=== PATIENT | male | born 1945 | race Caucasian/White ===

== ENCOUNTER 2020-05-25 15:12 | Emergency (ER) | payer OTHER ==
[2020-05-25 15:36] VITALS: BMI 21.6
[2020-05-25 17:19] LABS: HEMATOCRIT 42.6 % (35.4-49); HEMOGLOBIN 14.4 GM/dL (11.7-16.9); MCH 30.8 pg (25.7-33.7); MCHC 33.8 g/dl (32.0-35.9); MEAN CELL VOLUME 91.2 fl (80-96); MEAN PLT VOLUME 9.2 fl (7.5-11.1); PLATELET COUNT 138 K/MM3 (134-434); RBC 4.68 M/mm3 (4.00-5.60); RDW 14.1 % (11.9-15.9); WHITE BLOOD COUNT 4.9 K/mm3 (4.0-10.0)
[2020-05-25 17:36] LABS: POTASSIUM 4.5 mmol/L (3.5-5.1)
[2020-05-25 17:37] LABS: CALCIUM 8.3 mg/dL (8.5-10.1)
[2020-05-25 17:38] LABS: BLOOD UREA NITROGEN 13.9 mg/dL (7-18)
[2020-05-25 17:41] LABS: CREATININE 0.7 mg/dL (0.55-1.3)
[2020-05-25] MEDS: BAMLANIVIMAB 700 MG in SODIUM CHLORIDE 250 ML IVPB ONE ×2 (18:30→18:32)
[2020-05-25 21:38] VITALS: BP 132/85; PULSE 72; TEMP 98.1
== END 2020-05-25 20:05 | disposition home or self-care (01) ==
LOC: JER 15:12 → JCOVINFU 15:12
DX: U07.1 COVID-19 (principal)
CPT/HCPCS: 36415; 80048; 85027; 99284-25; M0239; Q0239

== ENCOUNTER 2020-07-03 11:57 | Inpatient (IN) | payer OTHER ==
[2020-07-03] MEDS ORDERED: ASPIRIN 81 MG CHEWABLE TABLETS PO ONE (12:19)
[2020-07-03] MEDS ORDERED: SODIUM CHLORIDE 1,000 ML IV SCH (12:30)
[2020-07-03] MEDS ORDERED: ASPIRIN 81 MG CHEWABLE TABLETS ONE (12:55)
[2020-07-03 13:22] LABS: BASO % 0.5 % (0-2.0); EOS % 14.4 % (0-4.5); HEMATOCRIT 40.3 % (35.4-49); HEMOGLOBIN 13.6 GM/dL (11.7-16.9); LYMPH % 18.2 % (8-40); MCH 31.2 pg (25.7-33.7); MCHC 33.9 g/dl (32.0-35.9); MEAN CELL VOLUME 92.1 fl (80-96); MEAN PLT VOLUME 8.7 fl (7.5-11.1); MONO % 5.7 % (3.8-10.2); NEUT % 61.2 % (42.8-82.8); PLATELET COUNT 198 K/MM3 (134-434); RBC 4.38 M/mm3 (4.00-5.60); RDW 14.6 % (11.9-15.9)
[2020-07-03 13:29] LABS: INR 0.97 (0.83-1.09)
[2020-07-03 13:31] LABS: ACTIVATED PTT 30.8 SECONDS (25.2-36.5)
[2020-07-03 13:41] LABS: CALCIUM 8.9 mg/dL (8.5-10.1)
[2020-07-03 13:42] LABS: ALBUMIN 3.8 g/dl (3.4-5.0); BLOOD UREA NITROGEN 15.8 mg/dL (7-18)
[2020-07-03 13:45] LABS: CREATININE 0.7 mg/dL (0.55-1.3)
[2020-07-03 13:46] LABS: BILIRUBIN,TOTAL 0.3 mg/dL (0.2-1); TOT PROT 7.7 g/dl (6.4-8.2)
[2020-07-03 17:39] LABS: URINE APPEARANCE CLEAR; URINE BILIRUBIN NEGATIVE (NEGATIVE); URINE COLOR YELLOW; URINE GLUCOSE (UA) NEGATIVE (NEGATIVE); URINE KETONE NEGATIVE (NEGATIVE); URINE LEUK ESTERASE NEGATIVE (NEGATIVE); URINE NITRITE NEGATIVE (NEGATIVE); URINE PROTEIN NEGATIVE (NEGATIVE); URINE UROBILINOGEN 0.2 mg/dL (0.2-1.0)
[2020-07-03 18:00] VITALS: BMI 22.9
[2020-07-03] MEDS: ATORVASTATIN CA 80 MG TABLET (FP) PO SCH (22:14)
[2020-07-04 07:17] LABS: BASO % 0.6 % (0-2.0); EOS % 22.6 % (0-4.5); HEMATOCRIT 39.7 % (35.4-49); HEMOGLOBIN 13.5 GM/dL (11.7-16.9); LYMPH % 16.7 % (8-40); MCHC 33.9 g/dl (32.0-35.9); MEAN CELL VOLUME 91.6 fl (80-96); MONO % 6.1 % (3.8-10.2); PLATELET COUNT 193 K/MM3 (134-434); RBC 4.34 M/mm3 (4.00-5.60); WHITE BLOOD COUNT 8.1 K/mm3 (4.0-10.0)
[2020-07-04 07:35] LABS: BLOOD UREA NITROGEN 14.9 mg/dL (7-18); CALCIUM 8.9 mg/dL (8.5-10.1)
[2020-07-04 07:36] LABS: ALBUMIN 3.5 g/dl (3.4-5.0)
[2020-07-04 07:39] LABS: CREATININE 0.7 mg/dL (0.55-1.3)
[2020-07-04 07:40] LABS: BILIRUBIN,TOTAL 0.6 mg/dL (0.2-1); TOT PROT 7.3 g/dl (6.4-8.2)
[2020-07-04] MEDS: ASPIRIN COATED 81 MG TABLET.EC PO SCH (09:36)
[2020-07-04] MEDS: amLODIPine BESYLATE 10 MG TABLET (FP) PO SCH (09:36)
[2020-07-04] MEDS ORDERED: amLODIPine BESYLATE 10 MG TABLET (FP) PO SCH (10:00)
[2020-07-04 10:35] LABS: ANISOCYTOSIS 0; MACROCYTOSIS 0; PLATELET ESTIMATE NORMAL
[2020-07-04] MEDS: ATORVASTATIN CA 80 MG TABLET (FP) PO SCH (21:59)
[2020-07-05 07:15] LABS: BASO % 0.4 % (0-2.0); EOS % 22.3 % (0-4.5); HEMATOCRIT 39.2 % (35.4-49); LYMPH % 13.6 % (8-40); MCH 31.2 pg (25.7-33.7); MCHC 33.1 g/dl (32.0-35.9); MEAN CELL VOLUME 94.2 fl (80-96); MEAN PLT VOLUME 9.7 fl (7.5-11.1); MONO % 7.4 % (3.8-10.2); NEUT % 56.3 % (42.8-82.8); PLATELET COUNT 177 K/MM3 (134-434); RBC 4.16 M/mm3 (4.00-5.60); RDW 14.8 % (11.9-15.9); WHITE BLOOD COUNT 8.4 K/mm3 (4.0-10.0)
[2020-07-05 07:28] LABS: BLOOD UREA NITROGEN 21.1 mg/dL (7-18); CALCIUM 8.7 mg/dL (8.5-10.1)
[2020-07-05 07:30] LABS: CREATININE 0.7 mg/dL (0.55-1.3)
[2020-07-05] MEDS: ASPIRIN COATED 81 MG TABLET.EC PO SCH (09:39)
[2020-07-05] MEDS: amLODIPine BESYLATE 10 MG TABLET (FP) PO SCH (09:39)
[2020-07-05] MEDS: ENOXAPARIN NA (PORCINE) 40 MG/0.4 ML DISP.SYRIN SQ SCH (09:40)
[2020-07-05 10:11] LABS: ANISOCYTOSIS 0; MACROCYTOSIS 0; PLATELET ESTIMATE NORMAL
[2020-07-05] MEDS ORDERED: METOPROLOL TARTRATE 5 MG/5 ML VIAL ONE (17:34)
[2020-07-05] MEDS: ATORVASTATIN CA 80 MG TABLET (FP) PO SCH (20:59)
[2020-07-06 07:06] LABS: BLOOD UREA NITROGEN 21.4 mg/dL (7-18); CALCIUM 8.8 mg/dL (8.5-10.1)
[2020-07-06 07:10] LABS: CREATININE 0.8 mg/dL (0.55-1.3)
[2020-07-06 07:16] LABS: BASO % 0.6 % (0-2.0); EOS % 21.1 % (0-4.5); HEMATOCRIT 40.1 % (35.4-49); HEMOGLOBIN 13.6 GM/dL (11.7-16.9); LYMPH % 18.2 % (8-40); MCH 31.3 pg (25.7-33.7); MCHC 33.9 g/dl (32.0-35.9); MEAN CELL VOLUME 92.5 fl (80-96); MONO % 7.7 % (3.8-10.2); NEUT % 52.4 % (42.8-82.8); PLATELET COUNT 188 K/MM3 (134-434); RBC 4.33 M/mm3 (4.00-5.60); RDW 14.8 % (11.9-15.9); WHITE BLOOD COUNT 7.6 K/mm3 (4.0-10.0)
[2020-07-06] MEDS: ENOXAPARIN NA (PORCINE) 40 MG/0.4 ML DISP.SYRIN SQ SCH (09:08)
[2020-07-06] MEDS: amLODIPine BESYLATE 10 MG TABLET (FP) PO SCH (09:08)
[2020-07-06] MEDS: ASPIRIN COATED 81 MG TABLET.EC PO SCH (09:09)
[2020-07-06 09:27] LABS: ANISOCYTOSIS 1+; PLATELET ESTIMATE NORMAL
[2020-07-06] MEDS: ATORVASTATIN CA 80 MG TABLET (FP) PO SCH (21:32)
[2020-07-07 08:09] LABS: IGA IMMUNOGLOBULIN 310 mg/dL (61-437); IGG QN IMMUNOGLOBULIN 1186 mg/dL (603-1613); IGM QN SERUM 246 mg/dL (15-143)
[2020-07-07] MEDS: ENOXAPARIN NA (PORCINE) 40 MG/0.4 ML DISP.SYRIN SQ SCH (09:08)
[2020-07-07] MEDS: amLODIPine BESYLATE 10 MG TABLET (FP) PO SCH (09:08)
[2020-07-07] MEDS: ASPIRIN COATED 81 MG TABLET.EC PO SCH (09:08)
[2020-07-07 09:50] LABS: BASO % 0.4 % (0-2.0); EOS % 17.1 % (0-4.5); HEMATOCRIT 40.6 % (35.4-49); HEMOGLOBIN 13.9 GM/dL (11.7-16.9); LYMPH % 18.8 % (8-40); MCH 31.5 pg (25.7-33.7); MCHC 34.2 g/dl (32.0-35.9); MEAN CELL VOLUME 92.3 fl (80-96); MEAN PLT VOLUME 8.1 fl (7.5-11.1); MONO % 6.4 % (3.8-10.2); NEUT % 57.3 % (42.8-82.8); PLATELET COUNT 216 K/MM3 (134-434); RDW 14.6 % (11.9-15.9)
[2020-07-07 10:21] LABS: ALBUMIN 3.9 g/dl (3.4-5.0)
[2020-07-07 10:25] LABS: CREATININE 0.8 mg/dL (0.55-1.3)
[2020-07-07 10:26] LABS: TOT PROT 7.6 g/dl (6.4-8.2)
[2020-07-07] MEDS ORDERED: metoPROLOL SUCCINATE 25 MG TAB.SR.24H (FP) PO SCH (10:30)
[2020-07-07 12:22] LABS: BILIRUBIN,TOTAL 0.5 mg/dL (0.2-1)
[2020-07-07 14:20] VITALS: BP 124/58; PULSE 61; TEMP 98.2
[2020-07-08] MEDS ORDERED: VALSARTAN 40 MG TABLET PO SCH (10:00)
[2020-07-08 16:08] LABS: ATYPICAL pANCA <1:20 titer (Neg:<1:20); C-ANCA <1:20 titer (Neg:<1:20)
== END 2020-07-07 17:46 | disposition home or self-care (01) | DRG 65 ==
LOC: SUPCPDRO 11:57 → JER 11:57 → JERBED 14:06 → J4W 17:24
PROVIDERS: ADMIT Internal Medicine
DX: I63.40 Cerebral infarction due to embolism of unspecified cerebral artery (principal); I42.9 Cardiomyopathy, unspecified; D72.10 Eosinophilia, unspecified; E78.5 Hyperlipidemia, unspecified; F10.11 Alcohol abuse, in remission; F03.90 Unspecified dementia, unspecified severity, without behavioral disturbance, psychotic disturbance, mood disturbance, and anxiety; G31.84 Mild cognitive impairment of uncertain or unknown etiology; I25.119 Atherosclerotic heart disease of native coronary artery with unspecified angina pectoris; I11.9 Hypertensive heart disease without heart failure
CPT/HCPCS: 36415; 70544-TC; 70547-TC; 70551-TC; 71045-TC-FY; 80048; 80053; 80061; 81003; 82550; 82607; 82784; 83036; 83520; 83721; 84484; 85025; 85610; 85730; 86256; 86780; 86850; 86900; 86901; 88300-TC; 93005; 93010; 93306-TC; 93880-TC; 97116-GP; 97161-GP; 99285-25; C9803; U0003; U0005